=== PATIENT | male | born 2000 | race Caucasian/White ===

== ENCOUNTER 2018-01-03 19:48 | Emergency (ER) | payer BC ==
--- NOTE | 2018-01-03 20:00 | ER Report ---
History and Physical Time Seen By MD: 20:00 Hx. of Stated Complaint: pt reports hx of mrsa and staph infections on skin, states he has a headache, chills, shakiness, weakness and difficulty focusing HPI/ROS CHIEF COMPLAINT: MRSA infection, today with some fevers and chills HISTORY OF PRESENT ILLNESS: This is a 17-year-old male. He is recently had a couple of skin sores that were cultured by his doctor in [place], [place]. He had been placed on Bactrim, but culture results came back showing MRSA that was resistant to all other antibiotics and IV vancomycin was recommended. He received this call from his doctor yesterday. Today started to have feelings of fevers and chills and was worried about possible blood infection. He does have a mild headache that he rates 2 on a 1-10 scale. He has had a little soreness in his neck as well. He denies any muscle aches. No shortness of breath or cough. No nausea or vomiting. Bowel bladder function is normal. Allergies: Coded Allergies: No Known Drug Allergies (Unverified , 01/03/18) Home Meds No Active Prescriptions or Reported Meds Reviewed Nurses Notes: Yes Constitutional Vital Sign - Last 24 Hours 01/03/18 01/03/18 01/03/18 01/03/18 19:53 19:54 20:03 20:18 Temp 100.2 Pulse 96 98 100 Resp 16 B/P (MAP) 125/72 (89) 125/72 Pulse Ox 92 92 93 O2 Delivery Room Air 01/03/18 01/03/18 01/03/18 01/03/18 20:25 20:30 20:33 20:38 Pulse 92 87 B/P (MAP) 113/62 (79) 104/63 (77) Pulse Ox 93 92 01/03/18 01/03/18 01/03/18 01/03/18 20:53 21:00 21:08 21:23 Pulse 82 81 86 B/P (MAP) 108/70 (83) Pulse Ox 92 94 93 01/03/18 01/03/18 01/03/18 01/03/18 21:30 21:38 21:53 22:00 Pulse 83 90 B/P (MAP) 106/76 (86) 115/66 (82) Pulse Ox 92 95 10/06/1801/03/18 01/03/18 01/03/18 22:05 22:20 22:30 22:35 Pulse 85 84 86 B/P (MAP) 87/73 (78) Pulse Ox 93 94 94 01/03/18 01/03/18 01/03/18 01/03/18 22:50 23:00 23:05 23:20 Pulse 78 86 81 B/P (MAP) 114/66 (82) Pulse Ox 92 92 91 01/03/18 01/03/18 23:30 23:35 Pulse 79 B/P (MAP) 108/66 (80) Pulse Ox 92 Intake and Output 01/03/18 01/03/18 01/04/18 15:00 23:00 07:00 Intake Total 262.5 ml Balance 262.5 ml Physical Exam General Appearance: The patient is alert. No acute distress. Eyes: Pupils are equal, round. Reactive to light. No pallor, injection or icterus. Extraocular movements are intact. ENT: Mucous membranes are moist. Normal oral mucosa. Posterior oropharynx is normal. Normal tympanic membranes and canals. Neck: Supple and non tender. No lymphadenopathy. Respiratory: Lungs are clear to auscultation. Cardiovascular: Regular rate and rhythm. No murmurs, gallops or rubs. Normal capillary refill. Gastrointestinal: Abdomen is soft and non tender. Nondistended. Normal active bowel sounds. Neurological: Alert and oriented x3. Cranial nerves II through XII show no acute deficits on my exam. No focal neurologic deficits in the extremities. Negative Kernig and Brudzinski signs. Skin: Warm and dry. He has a small skin sore on his mid forehead, one on central chest. He has a few healing sores on his left cheek and jaw. None of these show signs of abscess. There is mild redness around them no evidence of major cellulitic changes. Musculoskeletal: Extremities are nontender. No tenderness in palpation of the cervical, thoracic and lumbar spine. DIFFERENTIAL DIAGNOSIS: After history and physical exam, differential diagnosis was considered for the patient has a few skin soft tissue infections where he had MRSA isolated from. Having symptoms of fever and chills and a mild headache with some neck soreness. No real meningeal signs. Medical Decision Making Data Points Result Diagram: 01/03/18201901/03/182019 Laboratory Hematology Test 01/03/18 20:20 Red Blood Count 5.11 M/uL (4.00-5.60) Mean Corpuscular Volume 86.4 fL (80.0-96.0) Mean Corpuscular Hemoglobin 29.9 pg (26.0-33.0) Mean Corpuscular Hemoglobin Concent 34.6 g/dL (32.0-36.0) Red Cell Distribution Width 12.3 % (11.5-14.5) Mean Platelet Volume 7.0 fL (7.2-11.1) Neutrophils (%) (Auto) 68.5 % (39.4-72.5) Lymphocytes (%) (Auto) 20.3 % (17.6-49.6) Monocytes (%) (Auto) 10.0 % (4.1-12.4) Eosinophils (%) (Auto) 0.9 % (0.4-6.7) Basophils (%) (Auto) 0.3 % (0.3-1.4) Nucleated RBC Relative Count (auto) 0.0 /100WBC Neutrophils # (Auto) 5.8 K/uL (2.0-7.4) Lymphocytes # (Auto) 1.7 K/uL (1.3-3.6) Monocytes # (Auto) 0.8 K/uL (0.3-1.0) Eosinophils # (Auto) 0.1 K/uL (0.0-0.5) Basophils # (Auto) 0.0 K/uL (0.0-0.1) Nucleated RBC Absolute Count (auto) 0.00 K/uL Erythrocyte Sedimentation Rate 15 mm/HOUR (0-15) Sodium Level 139 mmol/L (137-145) Potassium Level 3.5 mmol/L (3.5-5.0) Chloride Level 100 mmol/L (98-107) Carbon Dioxide Level 26 mmol/L (22-30) Blood Urea Nitrogen 14 mg/dl (9-21) Creatinine 1.20 mg/dl (0.66-1.25) Glomerular Filtration Rate Calc > 60.0 Random Glucose 118 mg/dl (75-110) Calcium Level 8.9 mg/dl (8.4-10.2) Total Bilirubin 0.4 mg/dl (0.2-1.3) Aspartate Amino Transf (AST/SGOT) 29 U/L (0-35) Alanine Aminotransferase (ALT/SGPT) 32 U/L (0-56) Alkaline Phosphatase 77 U/L (0-126) C-Reactive Protein 1.7 mg/dl (<1.0) Total Protein 7.6 g/dl (6.3-8.2) Albumin 4.2 g/dl (3.5-5.0) Chemistry Test 01/03/18 20:20 White Blood Count 8.5 k/uL (4.5-11.0) Red Blood Count 5.11 M/uL (4.00-5.60) Hemoglobin 15.3 g/dL (14.0-18.0) Hematocrit 44.2 % (42.0-52.0) Mean Corpuscular Volume 86.4 fL (80.0-96.0) Mean Corpuscular Hemoglobin 29.9 pg (26.0-33.0) Mean Corpuscular Hemoglobin Concent 34.6 g/dL (32.0-36.0) Red Cell Distribution Width 12.3 % (11.5-14.5) Platelet Count 280 K/uL (150-450) Mean Platelet Volume 7.0 fL (7.2-11.1) Neutrophils (%) (Auto) 68.5 % (39.4-72.5) Lymphocytes (%) (Auto) 20.3 % (17.6-49.6) Monocytes (%) (Auto) 10.0 % (4.1-12.4) Eosinophils (%) (Auto) 0.9 % (0.4-6.7) Basophils (%) (Auto) 0.3 % (0.3-1.4) Nucleated RBC Relative Count (auto) 0.0 /100WBC Neutrophils # (Auto) 5.8 K/uL (2.0-7.4) Lymphocytes # (Auto) 1.7 K/uL (1.3-3.6) Monocytes # (Auto) 0.8 K/uL (0.3-1.0) Eosinophils # (Auto) 0.1 K/uL (0.0-0.5) Basophils # (Auto) 0.0 K/uL (0.0-0.1) Nucleated RBC Absolute Count (auto) 0.00 K/uL Erythrocyte Sedimentation Rate 15 mm/HOUR (0-15) Glomerular Filtration Rate Calc > 60.0 Calcium Level 8.9 mg/dl (8.4-10.2) Total Bilirubin 0.4 mg/dl (0.2-1.3) Aspartate Amino Transf (AST/SGOT) 29 U/L (0-35) Alanine Aminotransferase (ALT/SGPT) 32 U/L (0-56) Alkaline Phosphatase 77 U/L (0-126) C-Reactive Protein 1.7 mg/dl (<1.0) Total Protein 7.6 g/dl (6.3-8.2) Albumin 4.2 g/dl (3.5-5.0) ED Course/Re-evaluation Clinical Indication for ER IV: Hydration, IV Access ED Course IV was started. The patient was given vancomycin 1.25 g IV. CBC and sedimentation rate were negative. CRP was mildly elevated. Normal renal function. Based on all of this, I think he needs a course of IV vancomycin. He will need somebody to follow up with this and I recommended seeing student health since he is a student at the [employer]. We also talked about getting a PICC line started, he will think about this as he has had a PICC line for IV antibiotics in the past. Decision to Disposition Date: Jan 03, 2018 Decision to Disposition Time: 23:33 Depart Departure Latest Vital Signs Vital Signs Date Time Temp Pulse Resp B/P (MAP) Pulse Ox O2 Delivery O2 Flow Rate FiO2 01/03/18 23:35 79 92 01/03/18 23:30 108/66 (80) 01/03/18 19:54 100.2 16 Room Air Impression: Primary Impression: MRSA cellulitis Condition: Improved Disposition: HOME OR SELF-CARE New Scripts No Active Prescriptions or Reported Meds Patient Instructions: MRSA (Methicillin-Resistant Staphylococcus Aureus) (ED) Additional Instructions: Because of your skin infection with MRSA recently and the culture results from you doctor in [place], we recommend starting a course of IV Vancomycin. We have started the first dose here in the ER tonight, but you will need to follow-up with [facility] at the [facility] to help coordinate and monitor treatment. I can provide a prescription to get the next dose of antibiotics tomorrow here at the hospital if you are not able to get in with [facility] right away. You will also need to consider getting a PICC line placed for the course of antibiotics over the next several weeks. Further labs and monitoring needs to be done during your course of antibiotics as well for any dose adjustments needed. MARIO SEXTON MD Jan 03, 2018 20:00
[2018-01-03 20:32] LABS: PLATELET COUNT, AUTOMATED 280 K/uL (150-450)
[2018-01-03] MEDS ORDERED: VANCOMYCIN(*) 1 GM VIAL 1 GM, VANCOMYCIN (*) 0.5 GM VIAL 0.25 GM in NS(*) 0.9% 250 ML B... IVPB ONE (21:25)
[2018-01-03] MEDS ORDERED: diphenhydrAMINE 50 MG/ML VIAL IVP ONE (23:15)
[2018-01-03 23:30] VITALS: BP 108/66
== END 2018-01-03 23:47 | disposition home or self-care (01) ==
LOC: ER 20:18
DX: A49.02 Methicillin resistant Staphylococcus aureus infection, unspecified site (principal)
CPT/HCPCS: 36415; 85025; 85651; 86140; 87040; 96365; 96375; 99284; J1200; J3370; J7050; 82040; 82247; 82310; 82374; 82435; 82565; 82947; 84075; 84132; 84155; 84295; 84450; 84460; 84520

== ENCOUNTER → 2018-01-08 | Outpatient (CLI) | payer BC ==
[~2018-01-08] MED LIST: NS(*) 0.9% 10 ML VIAL 0 ML ONE
--- NOTE | 2018-01-08 17:24 | RADIOLOGY IMAGING REPORT ---
FACILITY: [facility] PATIENT NAME: Devendra Guardado : 2000 MR: [id number] V: [id number] EXAM DATE: ORDERING PHYSICIAN: ERMA QUEEN TECHNOLOGIST: Location: [facility] Patient: Devendra Guardado : 2000 Visit/Account:[id number] Date of Sevice: 01/08/2018 Exam type: PICC LINE PLACEMENT, PICC LINE INSERTION History: Need for long-term IV antibiotic therapy for MRSA Comparison: None. Findings: Informed consent was obtained. The patient's right arm was prepped and draped in usual sterile fashi on. Local anesthesia was accomplished with 1% lidocaine. Utilizing both sonographic and fluoroscopi c guidance a 39 cm long trimmed 4 Malagasy single lumen power PICC was advanced percutaneously into the patent right basilic vein with the distal tip resting in superior vena cava. PICC line was flushed with 5 mL of saline flush. Proximal portion PICC line was adhered the patient's arm the sterile dres sing. The sonographic images were saved to PACS. The procedure was accomplished without apparent co mplication. The fluoroscopy dose area product was 28.14 micro-Del Castillo per meter squared IMPRESSION: 1. Successful placement of a 39 cm long trimmed 4 Malagasy single lumen power PICC was inserted via th e patent right basilic vein with the distal tip resting in the superior vena cava Report Dictated By: Ivone Arellano MD at 01/08/2018 5:19 PM Report E-Signed By: Ivone Arellano MD at 01/08/2018 5:21 PM WSN:[email or web address]
--- NOTE | 2018-01-08 17:25 | RADIOLOGY IMAGING REPORT ---
FACILITY: [facility] PATIENT NAME: Devendra Guardado : 2000 MR: [id number] V: [id number] EXAM DATE: [id number] ORDERING PHYSICIAN: ERMA QUEEN TECHNOLOGIST: Location: [facility] Patient: Devendra Guardado : 2000 Visit/Account:[id number] Date of Sevice: 01/08/2018 Exam type: PICC LINE PLACEMENT, PICC LINE INSERTION History: Need for long-term IV antibiotic therapy for MRSA Comparison: None. Findings: Informed consent was obtained. The patient's right arm was prepped and draped in usual sterile fashi on. Local anesthesia was accomplished with 1% lidocaine. Utilizing both sonographic and fluoroscopi c guidance a 39 cm long trimmed 4 Taiwanese single lumen power PICC was advanced percutaneously into the patent right basilic vein with the distal tip resting in superior vena cava. PICC line was flushed with 5 mL of saline flush. Proximal portion PICC line was adhered the patient's arm the sterile dres sing. The sonographic images were saved to PACS. The procedure was accomplished without apparent co mplication. The fluoroscopy dose area product was 28.14 micro-Del Castillo per meter squared IMPRESSION: 1. Successful placement of a 39 cm long trimmed 4 Taiwanese single lumen power PICC was inserted via th e patent right basilic vein with the distal tip resting in the superior vena cava Report Dictated By: Ivone Arellano MD at 01/08/2018 5:19 PM Report E-Signed By: Ivone Arellano MD at 01/08/2018 5:21 PM WSN:[email or web address]
== END ==
LOC: RAD 13:20
PROVIDERS: ATTEND Nurse Practitioner Family
DX: B95.62 Methicillin resistant Staphylococcus aureus infection as the cause of diseases classified elsewhere (principal)
CPT/HCPCS: 36569; 76937; C1751

== ENCOUNTER → 2018-01-08 | Emergency (ER) | payer BC ==
[~2018-01-08] MED LIST changes: +FLU60VIA41 IM; -NS(*) 0.9% 10 ML VIAL 0 ML ONE; +VANC1VIA14 IV
== END ==
LOC: ER 11:41
DX: Z02.9 Encounter for administrative examinations, unspecified (principal)

== ENCOUNTER 2018-01-09 08:00 | Outpatient (RCR) | payer BC ==
[2018-01-07 23:10] VITALS: BP 122/72
[2018-01-08 01:00] VITALS: BP 120/62
[2018-01-08 08:45] VITALS: BP 138/75
[~2018-01-09 08:00] MED LIST changes: +DEXTROSE 5%(*) 100 ML BAG 100 ML IVPB PRN; -FLU60VIA41 IM; +LIDOCAINE/SOD BICARB 8.4% SYR ID PRN; +NS(*) 0.9% 100 ML ADDVANT BAG 100 ML ONE; +NS(*) 0.9% 100 ML BAG 100 ML IVPB PRN; +NS(*) 0.9% 250 ML BAG 250 ML ONE; -VANC1VIA14 IV; +VANCOMYCIN 1 GM ADDVIAL 1 GM in NS(*) 0.9% 250 ML ADDVAN BAG 250 ML IVPB ONE; +VANCOMYCIN 1 GM ADDVIAL ONE; +VANCOMYCIN(*) 1 GM VIAL 1 GM, VANCOMYCIN (*) 0.5 GM VIAL 0.25 GM in NS(*) 0.9% 250 ML B... IVPB ONE
[2018-01-15] MEDS ORDERED: VANC1VIA14 IV (14:03)
[2018-01-15] MEDS ORDERED: FLU60VIA41 IM (14:32)
== END 2018-01-31 09:35 | disposition home or self-care (01) ==
LOC: SPU 08:00
PROVIDERS: ATTEND Family Medicine
DX: A49.02 Methicillin resistant Staphylococcus aureus infection, unspecified site (principal)
CPT/HCPCS: 36592; 80202; 96365; J3370; J7050; 82310; 82374; 82435; 82565; 82947; 84132; 84295; 84520; 96374

== ENCOUNTER → 2018-01-11 | Outpatient (CLI) | payer BC | LOC: LAB 14:30 | PROVIDERS: ATTEND Emergency Medicine | DX: A49.02 Methicillin resistant Staphylococcus aureus infection, unspecified site (principal) | CPT/HCPCS: 36415; 80202 ==

== ENCOUNTER → 2018-01-15 | Outpatient (CLI) | payer BC ==
[~2018-01-15] MED LIST changes: -DEXTROSE 5%(*) 100 ML BAG 100 ML IVPB PRN; +FLU60VIA41 IM; -LIDOCAINE/SOD BICARB 8.4% SYR ID PRN; -NS(*) 0.9% 100 ML ADDVANT BAG 100 ML ONE; -NS(*) 0.9% 100 ML BAG 100 ML IVPB PRN; -NS(*) 0.9% 250 ML BAG 250 ML ONE; +VANC1VIA14 IV; -VANCOMYCIN 1 GM ADDVIAL 1 GM in NS(*) 0.9% 250 ML ADDVAN BAG 250 ML IVPB ONE; -VANCOMYCIN 1 GM ADDVIAL ONE; -VANCOMYCIN(*) 1 GM VIAL 1 GM, VANCOMYCIN (*) 0.5 GM VIAL 0.25 GM in NS(*) 0.9% 250 ML B... IVPB ONE
[2018-01-15 15:05] LABS: PLATELET COUNT, AUTOMATED 305 K/uL (150-450)
== END ==
LOC: LAB 14:34
PROVIDERS: ATTEND Emergency Medicine
DX: L03.90 Cellulitis, unspecified (principal); B95.62 Methicillin resistant Staphylococcus aureus infection as the cause of diseases classified elsewhere
CPT/HCPCS: 36415; 82784; 85025; 86140; 86703